=== PATIENT | female | born 1985 | race Caucasian/White ===

== ENCOUNTER 2017-08-24 15:31 | Emergency (ER) | payer MEDICAID ==
[2017-08-24] MEDS ORDERED: LORazepam 2 MG/ML SDV IVPUSH ONE ×2 (16:04→18:05)
--- NOTE | 2017-08-24 16:05 | EDM.PDOC ---
<Sandee Iqbal - Last Filed: 08/24/17 18:06> ED HPI GENERAL MEDICAL PROBLEM - General Chief Complaint: Neuro Symptoms/Deficits Stated Complaint: MEDICAL VIA AMBULANCE Time Seen by Provider: 08/24/17 16:04 Source of Information: Reports: Patient, Family History Limitations: Reports: No Limitations - History of Present Illness INITIAL COMMENTS - FREE TEXT/NARRATIVE: pt had generalized shaking when the ambulance arrived. She has drug testing on a weekly basis and was positive a few days ago for a number of things. She does not have a known history of generalized seizures. She has some small seizures that noone usually identifies. Onset: Today Duration: Hour(s): Location: Reports: Generalized Associated Symptoms: Reports: Seizure, Other ( There was no loss of urine or chewing of the tongue. ) Right Ear Pain Score (Numeric/FACES): 10 - Related Data Allergies Allergy/AdvReac Type Severity Reaction Status Date / Time adhesive Allergy Anaphylactic Verified 05/15/17 22:27 Shock azithromycin [From Zithromax] Allergy Swelling Verified 05/15/17 22:27 hydrocodone Allergy Hives Verified 05/15/17 22:27 metoclopramide HCl Allergy Other Verified 05/15/17 22:27 [From Reglan] tramadol HCl [From Ultram] Allergy Vomiting Verified 05/15/17 22:27 Home Meds: Home Meds Omeprazole [Prilosec] 20 mg PO DAILY 10/09/13 [History] Doxycycline Hyclate 100 mg PO BID 05/15/17 [History] oxyCODONE HCl/Acetaminophen [oxyCODONE-Acetaminophen 5-325] 2 tab PO Q6H PRN 05/03 [History] Past Medical History HEENT History: Reports: Hard of Hearing, Impaired Vision Cardiovascular History: Reports: Other (See Below) Other Cardiovascular History: tachycardia Gastrointestinal History: Reports: Cholelithiasis 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: Polycystic Ovaries, Neurological History: Reports: Other (See Below) 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 Endocrine/Metabolic History: Reports: Diabetes Mellitus, Type 3c - Past Surgical History HEENT Surgical History: Reports: Adenoidectomy, Tonsillectomy GI Surgical History: Reports: Appendectomy, Cholecystectomy Female Surgical History: Reports: Section, Other (See Below) Other Female Surgeries/Procedures: cyst off ovaries Social & Family History - Tobacco Use Smoking Status *Q: Current Every Day Smoker Years of Tobacco use: 2 Packs/Tins Daily: 0.5 - Caffeine Use Caffeine Use: Reports: Coffee - Recreational Drug Use Recreational Drug Use: No ED ROS GENERAL - Review of Systems Review Of Systems: See Below Constitutional: Reports: No Symptoms HEENT: Reports: No Symptoms Respiratory: Reports: No Symptoms Cardiovascular: Reports: No Symptoms Endocrine: Reports: No Symptoms GI/Abdominal: Reports: No Symptoms : Reports: No Symptoms Musculoskeletal: Reports: No Symptoms Skin: Reports: No Symptoms Neurological: Reports: Seizure, Other (pt had what sounds like a possible generalized seizure. She was otherwise in continuous motion. She gives a history of drug testing ) Psychiatric: Reports: Agitation, Anxiety Hematologic/Lymphatic: Reports: No Symptoms - Physical Exam Exam: See Below Text/Narrative:: Pt is in continuous motion. She did have some activity which seemed like a generalized seizure. Exam Limited By: No Limitations General Appearance: Alert, No Apparent Distress, Other ( she is complaining of severe rt ear pain. ) Ears: Normal TMs Nose: Normal Inspection Throat/Mouth: Normal Inspection Head Exam: Atraumatic Neck: Normal Inspection Respiratory/Chest: No Respiratory Distress Cardiovascular: Regular Rate, Rhythm GI/Abdominal: Soft, Non-Tender Rectal (Female) Exam: Deferred Neuro Exam (Abbreviated): Alert, Oriented, Inattentive Back Exam: Normal Inspection Extremities: Normal Inspection Psychiatric: Anxious Course - Vital Signs Last Recorded V/S: Last Vital Signs Temp 36.8 C 08/24/17 15:45 Pulse 116 H 08/24/17 19:29 Resp 20 08/24/17 19:29 BP 124/69 08/24/17 19:29 Pulse Ox 96 08/24/17 19:29 - Orders/Labs/Meds Orders: Active Orders 24 hr Category Date Time Status Chest 1V Frontal [CR] Stat Exams 08/24/17 16:58 Taken Head wo Cont [CT] Stat Exams 08/24/17 17:18 Taken DRUG SCREEN, URINE [URCHEM] Stat Lab 08/24/17 17:37 Ordered HCG QUALITATIVE,URINE [URCHEM] Stat Lab 08/24/17 17:37 Ordered UA W/MICROSCOPIC [URIN] Urgent Lab 08/24/17 17:37 Ordered Sodium Chloride 0.9% [Normal Saline] 1,000 ml Med 08/24/17 17:00 Active IV ASDIRECTED Medication Orders Sodium Chloride (Normal Saline) 1,000 mls @ 999 mls/hr IV ASDIRECTED HARRISON Last Admin: 08/24/17 17:16 Dose: 999 mls/hr Labs: Laboratory Tests 08/24/17 08/24/17 08/24/17 Range/Units 16:25 16:25 17:37 WBC 17.2 H (4.5-11.0) K/uL RBC 4.23 (3.30-5.50) M/uL Hgb 12.1 (12.0-15.0) g/dL Hct 35.9 L (36.0-48.0) % MCV 85 (80-98) fL MCH 29 (27-31) pg MCHC 34 (32-36) % Plt Count 397 (150-400) K/uL Neut % (Auto) 75 H (36-66) % Lymph % (Auto) 15 L (24-44) % [place] % (Auto) 9 H (2-6) % Eos % (Auto) 2 (2-4) % Baso % (Auto) 0 (0-1) % Sodium 140 (140-148) mmol/L Potassium 3.7 (3.6-5.2) mmol/L Chloride 104 (100-108) mmol/L Carbon Dioxide 19 L (21-32) mmol/L Anion Gap 20.7 H (5.0-14.0) mmol/L BUN 18 (7-18) mg/dL Creatinine 0.8 (0.6-1.0) mg/dL Est Cr Clr Drug Dosing 77.59 mL/min Estimated GFR (MDRD) > 60 (>60) Glucose 97 (74-106) mg/dL Calcium 8.8 (8.5-10.1) mg/dL Total Bilirubin 0.6 (0.2-1.0) mg/dL AST 48 H (15-37) U/L ALT 49 (12-78) U/L Alkaline Phosphatase 153 H (46-116) U/L Total Protein 7.7 (6.4-8.2) g/dL Albumin 3.8 (3.4-5.0) g/dL Globulin 3.9 H (2.3-3.5) g/dL Albumin/Globulin Ratio 1.0 L (1.2-2.2) Urine Color Yellow Urine Appearance Cloudy Urine pH 5.0 (4.5-8.0) Ur Specific [place] 1.025 (1.008-1.030) Urine Protein Trace (NEGATIVE) mg/dL Urine Glucose (UA) Normal (NEGATIVE) mg/dL Urine Ketones 150 H (NEGATIVE) mg/dL Urine Occult Blood Moderate (NEGATIVE) Urine Nitrite Negative (NEGATIVE) Urine Bilirubin Negative (NEGATIVE) Urine Urobilinogen 1 (NORMAL) mg/dL Ur Leukocyte Esterase Negative (NEGATIVE) Urine RBC 0-5 (0-5) Urine WBC 0-5 (0-5) Ur Epithelial Cells Many Amorphous Sediment Not seen Urine Bacteria Not seen Urine Mucus Many Urine HCG, Qual Urine Opiates Screen (NEGATIVE) Ur Oxycodone Screen (NEGATIVE) Urine Methadone Screen (NEGATIVE) Ur Propoxyphene Screen (NEGATIVE) Ur Barbiturates Screen (NEGATIVE) Ur Tricyclics Screen (NEGATIVE) Ur Phencyclidine Scrn (NEGATIVE) Ur Amphetamine Screen (NEGATIVE) U Methamphetamines Scrn (NEGATIVE) Urine MDMA Screen (NEGATIVE) U Benzodiazepines Scrn (NEGATIVE) U Cocaine Metab Screen (NEGATIVE) U Marijuana (THC) Screen (NEGATIVE) 08/24/17 08/24/17 Range/Units 17:37 17:37 WBC (4.5-11.0) K/uL RBC (3.30-5.50) M/uL Hgb (12.0-15.0) g/dL Hct (36.0-48.0) % MCV (80-98) fL MCH (27-31) pg MCHC (32-36) % Plt Count (150-400) K/uL Neut % (Auto) (36-66) % Lymph % (Auto) (24-44) % [place] % (Auto) (2-6) % Eos % (Auto) (2-4) % Baso % (Auto) (0-1) % Sodium (140-148) mmol/L Potassium (3.6-5.2) mmol/L Chloride (100-108) mmol/L Carbon Dioxide (21-32) mmol/L Anion Gap (5.0-14.0) mmol/L BUN (7-18) mg/dL Creatinine (0.6-1.0) mg/dL Est Cr Clr Drug Dosing mL/min Estimated GFR (MDRD) (>60) Glucose (74-106) mg/dL Calcium (8.5-10.1) mg/dL Total Bilirubin (0.2-1.0) mg/dL AST (15-37) U/L ALT (12-78) U/L Alkaline Phosphatase (46-116) U/L Total Protein (6.4-8.2) g/dL Albumin (3.4-5.0) g/dL Globulin (2.3-3.5) g/dL Albumin/Globulin Ratio (1.2-2.2) Urine Color Urine Appearance Urine pH (4.5-8.0) Ur Specific [place] (1.008-1.030) Urine Protein (NEGATIVE) mg/dL Urine Glucose (UA) (NEGATIVE) mg/dL Urine Ketones (NEGATIVE) mg/dL Urine Occult Blood (NEGATIVE) Urine Nitrite (NEGATIVE) Urine Bilirubin (NEGATIVE) Urine Urobilinogen (NORMAL) mg/dL Ur Leukocyte Esterase (NEGATIVE) Urine RBC (0-5) Urine WBC (0-5) Ur Epithelial Cells Amorphous Sediment Urine Bacteria Urine Mucus Urine HCG, Qual Negative Urine Opiates Screen Negative (NEGATIVE) Ur Oxycodone Screen Negative (NEGATIVE) Urine Methadone Screen Negative (NEGATIVE) Ur Propoxyphene Screen Negative (NEGATIVE) Ur Barbiturates Screen Negative (NEGATIVE) Ur Tricyclics Screen Negative (NEGATIVE) Ur Phencyclidine Scrn Negative (NEGATIVE) Ur Amphetamine Screen Positive H (NEGATIVE) U Methamphetamines Scrn Positive H (NEGATIVE) Urine MDMA Screen Positive H (NEGATIVE) U Benzodiazepines Scrn Positive H (NEGATIVE) U Cocaine Metab Screen Negative (NEGATIVE) U Marijuana (THC) Screen Negative (NEGATIVE) Meds: Medications Generic Name Dose Route Start Last Admin Trade Name Freq PRN Reason Stop Dose Admin Sodium Chloride 1,000 mls @ 999 mls/hr 08/24/17 17:00 08/24/17 17:16 Normal Saline IV 999 mls/hr ASDIRECTED HARRISON Administration Discontinued Medications Generic Name Dose Route Start Last Admin Trade Name Freq PRN Reason Stop Dose Admin Lorazepam 1 mg 08/24/17 16:04 08/24/17 16:39 Ativan IVPUSH 08/24/17 16:05 1 mg ONETIME ONE Administration Lorazepam 1 mg 08/24/17 18:05 08/24/17 18:33 Ativan IVPUSH 08/24/17 18:06 1 mg ONETIME ONE Administration - Re-Assessments/Exams Free Text/Narrative Re-Assessment/Exam: 08/24/17 18:06 pt has a drug screen that is positive for meth and mdma. She has a elevated wbc at 17,400. 08/24/17 18:07 Departure - Departure Disposition: Home, Self-Care 01 Clinical Impression: Positive urine drug screen, Movement disorder Otitis media Qualifiers: Otitis media type: suppurative Chronicity: acute Laterality: right Recurrence: not specified as recurrent Spontaneous tympanic membrane rupture: without spontaneous rupture Qualified Code(s): H66.001 - Acute suppurative otitis media without spontaneous rupture of ear drum, right ear - Discharge Information Referrals: PCP,None [Primary Care Provider] - Forms: ED Department Discharge <Sheldon Espinoza - Last Filed: 08/24/17 20:25> Course - Radiology Interpretation Free Text/Narrative:: Negative head CT scan. CT Results Date: 08/24/17 CT Results Time: 19:55 Departure - Departure Time of Disposition: 20:30 Condition: Fair
[2017-08-24] MEDS ORDERED: Sodium Chloride 0.9% 1,000 ML IV SCH (17:00)
[2017-08-24 19:29] VITALS: BP 124/69
--- NOTE | 2017-08-25 08:53 | CR ---
CHEST: Portable CLINICAL HISTORY:Seizures COMPARISON:None FINDINGS: Heart and pulmonary vascularity are normal. No infiltrate effusion or pneumothorax seen. IMPRESSION: No acute cardiopulmonary process
== END 2017-08-24 20:45 | disposition home or self-care (01) ==
LOC: JP.ED 15:31
DX: G25.9 Extrapyramidal and movement disorder, unspecified (principal); H66.001 Acute suppurative otitis media without spontaneous rupture of ear drum, right ear; R82.5 Elevated urine levels of drugs, medicaments and biological substances; E11.9 Type 2 diabetes mellitus without complications; F17.210 Nicotine dependence, cigarettes, uncomplicated; Z88.1 Allergy status to other antibiotic agents; Z91.09 Other allergy status, other than to drugs and biological substances; Z88.5 Allergy status to narcotic agent; Z79.899 Other long term (current) drug therapy; R25.1 Tremor, unspecified
CPT/HCPCS: 36415; 70450; 71045; 80053; 80305; 81001; 81025; 85025; 96361; 96374; 96376; 99285; J2060; J7030

== ENCOUNTER 2018-10-21 01:13 | Inpatient (IN) | payer MEDICAID ==
[2018-10-21] MEDS ORDERED: Terbutaline 1 MG/ML SDV SUBCUT ONE ×2 (01:46→02:55)
[2018-10-21] MEDS ORDERED: Lactated Ringers 1,000 ML IV ONE (01:47)
[2018-10-21] MEDS ORDERED: Terbutaline 1 MG/ML SDV ONE (01:53)
[2018-10-21] MEDS ORDERED: Sodium Chloride 0.9% 10 ML Syringe FLUSH PRN (02:55)
[2018-10-21] MEDS ORDERED: Lactated Ringers 1,000 ML IV SCH (03:00)
[2018-10-21] MEDS ORDERED: Penicillin G Potassium 5 MILLUNITS in Sodium Chloride 0.9% 50 ML IV ONE (03:02)
[2018-10-21] MEDS ORDERED: Oxytocin 10 Units/1 ML SDV ONE ×2 (05:26→05:58)
--- NOTE | 2018-10-21 05:57 | PCM.LDHP ---
L&D History of Present Illness - General Date of Service: 10/21/18 Admit Problem/Dx: Patient Status Order with Admit Dx/Problem 10/21/18 02:50 Patient Status [ADT] Routine Admission Diagnosis/Problem Admission Diagnosis/Problem - Related Data Allergies/Adverse Reactions: Allergies Allergy/AdvReac Type Severity Reaction Status Date / Time adhesive Allergy Anaphylactic Verified 05/15/17 22:27 Shock azithromycin [From Zithromax] Allergy Swelling Verified 05/15/17 22:27 hydrocodone Allergy Hives Verified 05/15/17 22:27 metoclopramide HCl Allergy Other Verified 05/15/17 22:27 [From Reglan] morphine Allergy Chest Verified 10/19/18 05:03 Presssure tramadol HCl [From Ultram] Allergy Vomiting Verified 05/15/17 22:27 Home Medications: Home Meds PNV95/Ferrous Fumarate/FA [ Tablet] 1 tab PO DAILY 07/07/18 [History] QUEtiapine [SEROquel] 100 mg PO DAILY 07/07/18 [History] Past Medical History HEENT History: Reports: Hard of Hearing, Impaired Vision Cardiovascular History: Reports: Other (See Below) Other Cardiovascular History: tachycardia Respiratory History: Reports: Other (See Below) Other Respiratory History: seasonal asthma Gastrointestinal History: Reports: Cholelithiasis 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: Polycystic Ovaries, Neurological History: Reports: Other (See Below) 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 Psychiatric History: Reports: Anxiety, Depression Endocrine/Metabolic History: Reports: Diabetes Mellitus, Type 3c - Past Surgical History HEENT Surgical History: Reports: Adenoidectomy, Tonsillectomy GI Surgical History: Reports: Appendectomy, Cholecystectomy Female Surgical History: Reports: Section, Other (See Below) Other Female Surgeries/Procedures: cyst off ovaries Social & Family History - Tobacco Use Smoking Status *Q: Current Every Day Smoker Years of Tobacco use: 3 Packs/Tins Daily: 0.5 Used Tobacco, but Quit: No Second Hand Smoke Exposure: No - Caffeine Use Caffeine Use: Reports: Coffee - Recreational Drug Use Recreational Drug Use: No H&P Review of Systems - Review of Systems: Review Of Systems: See Below General: Reports: No Symptoms HEENT: Reports: No Symptoms Pulmonary: Reports: No Symptoms Cardiovascular: Reports: No Symptoms Gastrointestinal: Reports: No Symptoms Genitourinary: Reports: No Symptoms Musculoskeletal: Reports: No Symptoms Skin: Reports: No Symptoms Psychiatric: Reports: No Symptoms Neurological: Reports: No Symptoms Hematologic/Lymphatic: Reports: No Symptoms Immunologic: Reports: No Symptoms L&D Exam - Exam Exam: See Below - Vital Signs Vital Signs: Last Vital Signs Temp 35.9 C 10/21/18 03:23 Pulse 90 10/21/18 03:23 Resp 18 10/21/18 03:23 BP 112/87 10/21/18 03:23 Pulse Ox 97 10/21/18 03:23 Weight: 88.8 kg - OB Specific Contraction Duration (sec): 90 Contraction Frequency (min): x1 Contraction Intensity: Moderate to Strong Presentation: Vertex - Dewey Score Dewey Score Cervix Position: Midposition Dewey Score Consistency: Soft Dewey Score Effacement: >80% Dewey Score Dilation: 3-4 cm Dewey Score Infant's Station: -1 ,0 Dewey Score Total: 10 - Exam General: Alert, Oriented, Cooperative HEENT: PERRLA, Conjunctiva Clear, EACs Clear, EOMI, Hearing Intact, Mucosa Moist & [place], Nares Patent, Normal Nasal Septum, Posterior Pharynx Clear, TMs Clear Neck: Supple, Trachea Midline Lungs: Clear to Auscultation, Normal Respiratory Effort Cardiovascular: Regular Rate, Regular Rhythm GI/Abdominal Exam: Normal Bowel Sounds, Soft, Non-Tender, No Organomegaly, No Distention, No Abnormal Bruit, No Mass, Pelvis Stable Rectal Exam: Normal Exam, Normal Rectal Tone Genitourinary: Normal external exam, Normal bimanual exam, Normal speculum exam Back Exam: Normal Inspection, Full Range of Motion Extremities: Normal Inspection, Normal Range of Motion, Non-Tender, No Pedal Edema, Normal Capillary Refill Skin: Warm, Dry, Intact Neurological: Cranial Nerves Intact, Reflexes Equal Bilateral Psychiatric: Alert, Normal Affect, Normal Mood - Patient Data Lab Results Last 24 hrs: Laboratory Results - last 24 hr 10/21/18 10/21/18 10/21/18 Range/Units 01:39 01:48 02:55 WBC 14.0 H (4.5-11.0) K/uL RBC 4.10 (3.30-5.50) M/uL Hgb 13.1 (12.0-15.0) g/dL Hct 38.3 (36.0-48.0) % MCV 93 (80-98) fL MCH 32 H (27-31) pg MCHC 34 (32-36) % Plt Count 262 (150-400) K/uL Neut % (Auto) 80 H (36-66) % Lymph % (Auto) 12 L (24-44) % [place] % (Auto) 6 (2-6) % Eos % (Auto) 1 L (2-4) % Baso % (Auto) 0 (0-1) % Urine Color Yellow (YELLOW) Urine Appearance Slightly cloudy A (CLEAR) Urine pH 7.0 (5.0-8.0) Ur Specific [place] 1.030 (1.008-1.030) Urine Protein Negative (NEGATIVE) mg/dL Urine Glucose (UA) Normal (NEGATIVE) mg/dL Urine Ketones Negative (NEGATIVE) mg/dL Urine Occult Blood Trace (NEGATIVE) Urine Nitrite Negative (NEGATIVE) Urine Bilirubin Negative (NEGATIVE) Urine Urobilinogen Normal (0.2-1.0) EU/dL Ur Leukocyte Esterase Negative (NEGATIVE) Urine RBC 5-10 H (0-5) Urine WBC 0-5 (0-5) Ur Epithelial Cells Many Amorphous Sediment Rare Urine Bacteria Few Urine Mucus Not seen Urine Opiates Screen Negative (NEGATIVE) Ur Oxycodone Screen Negative (NEGATIVE) Urine Methadone Screen Negative (NEGATIVE) Ur Propoxyphene Screen Negative (NEGATIVE) Ur Barbiturates Screen Negative (NEGATIVE) Ur Tricyclics Screen Negative (NEGATIVE) Ur Phencyclidine Scrn Negative (NEGATIVE) Ur Amphetamine Screen Negative (NEGATIVE) U Methamphetamines Scrn Negative (NEGATIVE) Urine MDMA Screen Negative (NEGATIVE) U Benzodiazepines Scrn Negative (NEGATIVE) U Cocaine Metab Screen Negative (NEGATIVE) U Marijuana (THC) Screen Negative (NEGATIVE) Blood Type Gel Antibody Screen 10/21/18 Range/Units 03:00 WBC (4.5-11.0) K/uL RBC (3.30-5.50) M/uL Hgb (12.0-15.0) g/dL Hct (36.0-48.0) % MCV (80-98) fL MCH (27-31) pg MCHC (32-36) % Plt Count (150-400) K/uL Neut % (Auto) (36-66) % Lymph % (Auto) (24-44) % [place] % (Auto) (2-6) % Eos % (Auto) (2-4) % Baso % (Auto) (0-1) % Urine Color (YELLOW) Urine Appearance (CLEAR) Urine pH (5.0-8.0) Ur Specific [place] (1.008-1.030) Urine Protein (NEGATIVE) mg/dL Urine Glucose (UA) (NEGATIVE) mg/dL Urine Ketones (NEGATIVE) mg/dL Urine Occult Blood (NEGATIVE) Urine Nitrite (NEGATIVE) Urine Bilirubin (NEGATIVE) Urine Urobilinogen (0.2-1.0) EU/dL Ur Leukocyte Esterase (NEGATIVE) Urine RBC (0-5) Urine WBC (0-5) Ur Epithelial Cells Amorphous Sediment Urine Bacteria Urine Mucus Urine Opiates Screen (NEGATIVE) Ur Oxycodone Screen (NEGATIVE) Urine Methadone Screen (NEGATIVE) Ur Propoxyphene Screen (NEGATIVE) Ur Barbiturates Screen (NEGATIVE) Ur Tricyclics Screen (NEGATIVE) Ur Phencyclidine Scrn (NEGATIVE) Ur Amphetamine Screen (NEGATIVE) U Methamphetamines Scrn (NEGATIVE) Urine MDMA Screen (NEGATIVE) U Benzodiazepines Scrn (NEGATIVE) U Cocaine Metab Screen (NEGATIVE) U Marijuana (THC) Screen (NEGATIVE) Blood Type A POSITIVE Gel Antibody Screen Negative Result Diagrams: 10/21/18 01:48 - Problem List (1) SNOMED Code(s): 33058232 ICD Code: Z34.90 - ENCNTR FOR SUPRVSN OF NORMAL , UNSP, UNSP TRIMESTER Status: Acute Current Visit: Yes Qualifiers: Weeks of gestation: 37 weeks Qualified Code(s): Z3A.37 - 37 weeks gestation of (2) Spon labr w plan C/S-del SNOMED Code(s): 07005918, 276408664 ICD Code: O75.82 - ONSET LABOR 37-39 WEEKS, W DEL BY (PLANNED) SECTION Status: Acute Current Visit: Yes (3) 37 weeks gestation of SNOMED Code(s): 50806753 ICD Code: Z3A.37 - 37 WEEKS GESTATION OF Status: Acute Current Visit: Yes (4) Labor established SNOMED Code(s): 49605607 ICD Code: MGN4120 - Status: Acute Current Visit: Yes (5) Positive GBS test SNOMED Code(s): 961261448, 615633563 ICD Code: B95.1 - STREPTOCOCCUS, GROUP B, CAUSING DISEASES CLASSD ELSWHR Status: Acute Current Visit: Yes Problem List Initiated/Reviewed/Updated: Yes Orders Last 24hrs: Active Orders 24 hr Category Date Time Status Patient Status [ADT] Routine ADT 10/21/18 02:50 Active Ambulate [RC] PER UNIT ROUTINE Care 10/21/18 02:55 Active Communication Order [RC] ASDIRECTED Care 10/21/18 02:50 Active Notify Provider Vital Signs [RC] PRN Care 10/21/18 02:55 Active Notify Provider [RC] PRN Care 10/21/18 02:50 Active OB Check [OM.PC] Click to Edit Care 10/21/18 01:40 Ordered VTE/DVT Education [RC] Click to Edit Care 10/21/18 03:00 Active Vital Signs [RC] PER UNIT ROUTINE Care 10/21/18 02:50 Active PATIENT RETYPE [BBK] Routine Lab 10/21/18 03:00 Results TYPE AND SCREEN [BBK] Routine Lab 10/21/18 03:00 Results Lactated Ringers [Ringers, Lactated] 1,000 ml Med 10/21/18 03:00 Active IV ASDIRECTED Sodium Chloride 0.9% [Saline Flush] Med 10/21/18 02:55 Active 10 ml FLUSH ASDIRECTED PRN DVT/VTE Prophylaxis Reflex [OM.PC] Routine Oth 10/21/18 02:55 Ordered Saline Lock Insert [OM.PC] Routine Oth 10/21/18 02:50 Ordered Resuscitation Status Routine Resus Stat 10/21/18 02:48 Ordered Medication Orders Lactated Ringer's (Ringers, Lactated) 1,000 mls @ 125 mls/hr IV ASDIRECTED HARRISON Last Admin: 10/21/18 03:15 Dose: 125 mls/hr Sodium Chloride (Saline Flush) 10 ml FLUSH ASDIRECTED PRN PRN Reason: Keep Vein Open Assessment/Plan Comment:: 10/21/2018 32 yo who came in in labor at 37 6/7 weeks gestation with a history of a c- section with twins in last , and will be having a planned RCS with this . SVE-2-3/80/-1 FHT category one Laury regularly every two minutes and very uncomfortable with them Plan- Will start IV and give a bolus Will give one dose of terbutaline to calm contractions Will give one dose of PCN G for GBS positive Continue to monitor labor Continue to monitor FHTS Admit for to labor and delivery for RCS later this am
[2018-10-21] MEDS ORDERED: ePHEDrine 50 MG/ML SDV ONE (05:58)
[2018-10-21] MEDS ORDERED: cefOXitin 2 GM Vial ONE (05:58)
[2018-10-21] MEDS ORDERED: Lactated Ringers 1,000 ML ONE (06:02)
[2018-10-21] MEDS ORDERED: Ondansetron 4 MG/2 ML SDV ONE (06:30)
[2018-10-21] MEDS ORDERED: Dexamethasone 4 MG/ML SDV ONE (06:30)
[2018-10-21] MEDS ORDERED: fentaNYL 100 MCG/2 ML SDV ONE (06:47)
[2018-10-21] MEDS ORDERED: Midazolam 1 MG/ML 2 ML SDV ONE (06:48)
[2018-10-21] MEDS ORDERED: Lidocaine 1% 2 ML ONE (07:03)
[2018-10-21] MEDS ORDERED: Sodium Chloride 0.9% 10 ML ONE (07:10)
[2018-10-21] MEDS ORDERED: Naloxone 0.4 MG/ML SDV IV PRN (07:32)
[2018-10-21] MEDS ORDERED: Bisacodyl 10 MG Supp RECTAL PRN (07:38)
[2018-10-21] MEDS ORDERED: Sennosides 8.6 MG Tab PO PRN (07:38)
[2018-10-21] MEDS ORDERED: Hydrocortisone 2.5% Crm 30 GM Tube TOP PRN (07:38)
[2018-10-21] MEDS ORDERED: ePHEDrine 50 MG/ML SDV IVPUSH PRN (07:38)
[2018-10-21] MEDS ORDERED: Aluminum Hydroxide/Magnesium Hydroxide/Simethicone Susp 30 ML Cup PO PRN (07:38)
[2018-10-21] MEDS ORDERED: Acetaminophen/HYDROcodone 325-5 MG Tab PO PRN (07:38)
[2018-10-21] MEDS ORDERED: Naloxone 0.4 MG/ML SDV IVPUSH PRN (07:38)
[2018-10-21] MEDS ORDERED: diphenhydrAMINE 50 MG/ML SDV IV PRN (07:38)
[2018-10-21] MEDS ORDERED: fentaNYL 100 MCG/2 ML SDV IVPUSH PRN (07:41)
[2018-10-21] MEDS: HYDROmorphone/Normal Saline 15 MG/30 ML PCA IV PRN (07:44)
[2018-10-21] MEDS: Ibuprofen 800 MG Tab PO PRN (09:12)
--- NOTE | 2018-10-21 09:30 | OR ---
DATE OF PROCEDURE: 10/21/2018 SURGEON: Saroj Levine MD PROCEDURE: section with aftercare. PEST CONTROLLER ASSISTANT: Maryam Alves CNM. COMPLICATIONS: None. PEST CONTROLLER ASSISTANT: None. ANESTHESIA: Spinal. RISKS: Risks, benefits, alternatives, and limitations including, but not limited to infection, bleeding, injury to baby, bladder, intestines, chronic wounds, chronic pain, and other risks not listed here were explained to the patient. They wished to proceed. PREOPERATIVE DIAGNOSIS: Repeat . POSTOPERATIVE DIAGNOSIS: Repeat . PROCEDURE IN DETAIL: The patient was placed in a supine position. The abdomen was prepped and draped. Using the previous Pfannenstiel incision, a 15 blade was used to reopen this. Electrocautery was then used to carry it down to and open the fascia. Metzenbaum scissors were used to enter the abdomen sharply. No evidence of enterotomy or injury was noted. A muscle sparing technique was then performed. The bladder was then dissected freely off the uterus and protected through the remainder of the case with a bladder blade. The uterus was then opened bluntly with a Briana type clamp. A bandage scissors was used to enlarge the uterus. The baby was delivered with mild difficulty. At no point during delivery was there undue tension or pulling on baby's arms, legs, or head. Once the baby was delivered, the cord was clamped and cut. The placenta was delivered and inspected for total delivery, which was noted. Uterus was inspected. No abnormalities were noted. The uterus was then closed with 3 layers of #1 Vicryl interrupted running sutures. The bladder was then reapproximated. The abdomen was checked for clots and thoroughly irrigated. The uterus was placed back in the abdomen. The rectus muscles were reapproximated with Vicryl sutures. The fascia was closed with #1 Vicryl in a running fashion x2. Subcutaneous tissues were irrigated and approximated with 3-0 Vicryl. Skin was closed with 4-0 Vicryl. Dermabond was applied. The patient tolerated the procedure well. Saroj Levine MD /[id number]
[2018-10-21] MEDS: Prenatal Multivitamin with Calcium/Folic Acid/Iron Tab PO SCH (10:33)
[2018-10-21] MEDS: Ondansetron 4 MG/2 ML SDV IVPUSH PRN ×3 (10:40→20:57)
[2018-10-21] MEDS: Sodium Chloride 0.9% 1,000 ML IV SCH ×2 (12:08→20:07)
[2018-10-21] MEDS ORDERED: Calcium Carbonate 500 MG Tab.Chew PO PRN (17:37)
[2018-10-22] MEDS: HYDROmorphone/Normal Saline 15 MG/30 ML PCA IV PRN ×2 (01:21→16:47)
[2018-10-22] MEDS: Sodium Chloride 0.9% 1,000 ML IV SCH ×2 (01:26→11:26)
[2018-10-22] MEDS: Ibuprofen 800 MG Tab PO PRN ×2 (03:35→12:23)
[2018-10-22] MEDS: diphenhydrAMINE 50 MG/ML SDV IVPUSH PRN ×3 (03:36→23:39)
[2018-10-22] MEDS: Ondansetron 4 MG/2 ML SDV IVPUSH PRN (06:12)
[2018-10-22] MEDS ORDERED: Measles, Mumps & Rubella Vaccine 0.5 ML SDV SUBCUT ONE (09:00)
--- NOTE | 2018-10-22 12:11 | PN ---
DATE OF SERVICE: 10/22/2018 SUBJECTIVE: Patient is doing very well. No nausea. Pain is well controlled. 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 She does have some of nausea which is improving and has been given nausea medication. OBJECTIVE: VITAL SIGNS: Stable. She is afebrile per nursing report. CARDIOVASCULAR: Regular rhythm and rate. RESPIRATORY: Lungs are clear to auscultation bilaterally. ABDOMEN: Incision is healing well. ASSESSMENT: Status post section. 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 We will continue to work on diet and activity in conjunction with nausea. We inspected hemoglobin, she had very minimal vaginal bleeding, and we will reassess tomorrow morning. Saroj Levine MD /[id number]
[2018-10-22] MEDS: Prenatal Multivitamin with Calcium/Folic Acid/Iron Tab PO SCH (13:32)
[2018-10-23] MEDS: Ibuprofen 800 MG Tab PO PRN (03:26)
[2018-10-23] MEDS: diphenhydrAMINE 50 MG/ML SDV IVPUSH PRN (07:21)
[2018-10-23] MEDS: Acetaminophen/oxyCODONE 325-5 MG Tab PO PRN ×4 (09:08→23:33)
[2018-10-23] MEDS: Docusate Sodium 100 MG Cap PO PRN ×2 (09:09→23:34)
[2018-10-23] MEDS: Prenatal Multivitamin with Calcium/Folic Acid/Iron Tab PO SCH (10:29)
[2018-10-23] MEDS: Ibuprofen 600 MG Tab PO SCH ×2 (13:26→23:34)
[2018-10-24] MEDS: Acetaminophen/oxyCODONE 325-5 MG Tab PO PRN ×3 (03:54→12:33)
[2018-10-24 07:20] VITALS: BP 125/69; PULSE 88
[2018-10-24] MEDS: Ibuprofen 600 MG Tab PO SCH (07:22)
[2018-10-24] MEDS: Prenatal Multivitamin with Calcium/Folic Acid/Iron Tab PO SCH (08:19)
--- NOTE | 2018-10-24 13:40 | DISCH ---
DISCHARGE DIAGNOSIS: Status post . SUMMARY OF HOSPITAL COURSE: This is a pleasant female who underwent a section due to repeat . The patient did well postoperatively. Her pain was well controlled. She had no nausea, vomiting, shortness of breath, or chest pain. OBJECTIVE: VITAL SIGNS: Stable. FOLLOWUP: With Surgery in 7 to 14 days. ACTIVITY: No lifting greater than 30 pounds x30 days. DISCHARGE MEDICATIONS: Please see MAR, but include Percocet as a backup for ibuprofen . ACTIVITY: As tolerated except no lifting more than 20 pounds x30 days. DIET: As tolerated.
--- NOTE | 2018-10-24 13:40 | PN ---
DATE OF SERVICE: 10/24/2018 SUBJECTIVE: The patient is doing very well. Pain is well controlled. No nausea, vomiting, shortness of breath, or chest pain. OBJECTIVE: VITAL SIGNS: Vital signs stable. She is afebrile. EXTREMITIES: Incision healing well. ASSESSMENT: Status post . PLAN: The patient will be discharged today. Please see discharge summary for further details. Saroj Levine MD /[id number]
--- NOTE | 2018-10-28 10:58 | PN ---
DATE OF SERVICE: 10/23/2018 SUBJECTIVE: The patient continues to improve. Her pain is again well controlled. No nausea, vomiting, shortness of breath, or chest pain. OBJECTIVE: VITAL SIGNS: Vital signs are stable. She is afebrile, per nursing report. ABDOMEN: Incision healing well. ASSESSMENT: Status post section. PLAN: The patient will be evaluated again for discharge in the a.. Saroj Levine MD /[id number]
== END 2018-10-24 13:28 | disposition home or self-care (01) | DRG 788 ==
LOC: JP.OBCHECK 01:13 → JP.OB 02:36 → OBSVTOIN 06:35 → JP.OB 06:35 → JP.MS 09:19
PROVIDERS: ADMIT Advanced Practice Midwife; ATTEND Surgery
PROC: 10D00Z1 Extraction of Products of Conception, Low, Open Approach (ICD-10-PCS; principal; 2018-10-21)
DX: O75.82 Onset (spontaneous) of labor after 37 completed weeks of gestation but before 39 completed weeks gestation, with delivery by (planned) cesarean section (principal); O34.211 Maternal care for low transverse scar from previous cesarean delivery; N85.8 Other specified noninflammatory disorders of uterus; Z3A.37 37 weeks gestation of pregnancy; Z37.0 Single live birth; O99.824 Streptococcus B carrier state complicating childbirth; O99.344 Other mental disorders complicating childbirth; F32.9 Major depressive disorder, single episode, unspecified; F41.9 Anxiety disorder, unspecified; Z88.5 Allergy status to narcotic agent; Z88.8 Allergy status to other drugs, medicaments and biological substances; Z91.048 Other nonmedicinal substance allergy status; Z79.899 Other long term (current) drug therapy
CPT/HCPCS: 36415; 59409; 80048; 80305-QW; 81001; 85025; 86850; 86900; 86901; 88307; 90471; 90707; 94762; 99211; A9270-GY; J0694; J1100; J1170; J1200; J2001; J2250; J2405; J2540; J2590; J3010; J3105; J7030; J7050; J7120